=== PATIENT | female | born 1970 | race African-American/Black ===

== ENCOUNTER 2023-04-20 12:24 | Emergency (ER) | payer OTHER ==
[~2023-04-20] VITALS: Ht 167.6 cm; Wt 100.0 kg
[~2023-04-20 12:24] MED LIST: ASPI-1444 PO; CETI-450 PO; CHOL200018 PO; CITA-144 PO; CYCL5TAB PO; FOLI-130 PO; HYDR200T38 PO; HYDR25TA2 PO; LORA-999 PO; MOME17N NASAL; POLY17PO47 PO
[2023-04-20 12:26] VITALS: TEMP 98.4
[2023-04-20] MEDS ORDERED: LIDOCAINE 5% TRANSDERMAL PATCH TD ONE (13:15)
[2023-04-20] MEDS ORDERED: ACETAMINOPHEN 500 MG TABLET PO ONE (13:15)
[2023-04-20] MEDS ORDERED: BACLOFEN 10 MG TABLET PO ONE (13:15)
[2023-04-20] MEDS ORDERED: LIDO700A15 TP (14:26)
[2023-04-20 14:30] VITALS: BP 164/94; PULSE 98; RESP 16
[2023-04-20] MEDS ORDERED: DICL100G60 TP (14:30)
[2023-04-20] MEDS ORDERED: BACL10TA PO (14:31)
== END 2023-04-20 14:48 | disposition home or self-care (01) ==
LOC: EMS 12:26
DX: M25.551 Pain in right hip (principal); F41.9 Anxiety disorder, unspecified; I10 Essential (primary) hypertension; E03.9 Hypothyroidism, unspecified; F17.210 Nicotine dependence, cigarettes, uncomplicated; Z98.51 Tubal ligation status; Z90.89 Acquired absence of other organs; Z98.890 Other specified postprocedural states
CPT/HCPCS: 73502; 99284; 99285

== ENCOUNTER 2023-05-25 15:06 | Inpatient (IN) | payer OTHER ==
[~2023-05-25] VITALS: Ht 172.7 cm; Wt 101.2 kg
[~2023-05-25 15:06] MED LIST changes: -ASPI-1444 PO; +BACL10TA PO; -CETI-450 PO; -CHOL200018 PO; -CITA-144 PO; -CYCL5TAB PO; +DICL100G60 TP; -FOLI-130 PO; -HYDR200T38 PO; -HYDR25TA2 PO; +LIDO700A15 TP; -LORA-999 PO; -MOME17N NASAL; -POLY17PO47 PO
[2023-05-25] MEDS ORDERED: LOSA-381 PO (15:29)
[2023-05-25] MEDS ORDERED: HydrALAZINE HCL 20 MG/ML VIAL IVP ONE (15:30)
[2023-05-25 15:47] LABS: BASOPHILS % (AUTO) 0.2 % (0.0-2.0); EOSINOPHILS % (AUTO) 1.2 % (1.0-6.0); HEMATOCRIT 34.8 % (36-46); HEMOGLOBIN 11.8 g/dL (12.0-16.0); LYMPHOCYTES # (AUTO) 2.2 K/uL (1.0-4.8); LYMPHOCYTES % (AUTO) 32.6 % (22.0-44.0); MEAN CORPUSCULAR HEMOGLOBIN 28.8 pg (26.0-34.0); MEAN CORPUSCULAR HGB CONC 33.9 G/dL (31.0-37.0); MEAN CORPUSCULAR VOLUME 85 fL (80-100); MONOCYTES # (AUTO) 0.8 K/uL (0.1-1.0); MONOCYTES % (AUTO) 12.2 % (2.0-9.0); NEUTROPHILS # (AUTO) 3.6 K/uL (1.8-7.7); NEUTROPHILS % (AUTO) 53.8 % (40.0-70.0); PLATELET COUNT (AUTO) 292 K/uL (150-450); RED BLOOD CELL COUNT(AUTO) 4.08 MIL/uL (4.00-5.20); RED CELL DISTRIBUTION WIDTH 13.7 % (11.5-14.5); WHITE BLOOD COUNT (AUTO) 6.7 K/uL (4.5-11.0)
[2023-05-25 16:01] LABS: ANION GAP 6 mmol/L (8-16); CALCIUM, TOTAL 9.1 mg/dL (8.8-10.5); CARBON DIOXIDE 29 mmol/L (22-29); CHLORIDE 103 mmol/L (98-107); CREATININE 0.89 mg/dL (0.60-1.30); GLOMERULAR FILTR. RATE CALC > 60 mL/min (>60); GLUCOSE,RANDOM 96 mg/dL (70-110); POTASSIUM 3.7 mmol/L (3.5-5.1); SODIUM SERUM 138 mmol/L (136-145); UREA NITROGEN, BLOOD 14 mg/dL (7-18)
[2023-05-25 16:07] LABS: ALANINE AMINOTRANSFERASE 12 U/L (12-78); ALBUMIN 3.2 g/dL (3.4-5.0); ALKALINE PHOSPHATASE 107 U/L (46-116); ASPARTATE AMINOTRANSFERASE 24 U/L (15-37); BILIRUBIN,TOTAL 0.3 mg/dL (0.1-1.0); TOTAL PROTEIN, SERUM 7.9 g/dL (6.4-8.2)
[2023-05-25 16:09] LABS: TROPONIN I-HIGH SENSITIVITY 26 ng/L (<51)
[2023-05-25 16:10] LABS: B-TYPE NATRIURETIC PEPTIDE 61 pg/mL (0-100)
[2023-05-25] MEDS ORDERED: LABETALOL HCL 5 MG/ML 20 ML VIAL IVP ONE (17:30)
[2023-05-25] MEDS ORDERED: SODIUM CHLORIDE 0.9% 100 ML ONE (17:31)
[2023-05-25] MEDS ORDERED: IOHEXOL 350 MG/ML 100 ML VIAL ONE (17:32)
[2023-05-25] MEDS ORDERED: MAGNESIUM HYDROXIDE SUSPENSION 30 ML UDCUP PO PRN (19:00)
[2023-05-25] MEDS ORDERED: MORPHINE SULFATE 2 MG/ML SYRINGE IVP PRN (19:00)
[2023-05-25] MEDS ORDERED: BISACODYL 10 MG RECTAL RECTAL SUPPOSITORY PR PRN (19:00)
[2023-05-25] MEDS ORDERED: ZOLPIDEM TARTRATE 5 MG TABLET PO PRN (19:00)
[2023-05-25 20:09] LABS: COVID AG,FIA SOURCE NASAL SWAB
[2023-05-25] MEDS ORDERED: LABETALOL HCL 200 MG in DEXTROSE 5%-WATER 160 ML IV PRN (20:15)
[2023-05-25] MEDS: ACETAMINOPHEN 325 MG TABLET PO PRN (20:19)
[2023-05-25] MEDS: DOCUSATE SODIUM 100 MG CAPSULE PO SCH (20:19)
[2023-05-25] MEDS: ONDANSETRON HCL 4 MG/2 ML VIAL IVP PRN (20:20)
[2023-05-25 20:26] LABS: SARS-COV2 (COVID) ANTIGEN,FIA Negative (Negative)
[2023-05-25 21:00] VITALS: BP 191/96; PULSE 85; RESP 16; TEMP 98.4
[2023-05-25] MEDS: HYDROCODONE/ACETAMINOPHEN 5-325 MG TABLET PO PRN (21:26)
[2023-05-26] VITALS (7 sets, daily range): BP systolic 119–170; BP diastolic 57–90; PULSE 62–74; RESP 11–20; TEMP 97.4–98.7
[2023-05-26] MEDS: HEPARIN SODIUM,PORCINE 5,000 UNITS/ML VIAL SQ SCH ×4 (00:24→23:24)
[2023-05-26] MEDS: HYDROCODONE/ACETAMINOPHEN 5-325 MG TABLET PO PRN (04:51)
[2023-05-26 05:18] LABS: BASOPHILS % (AUTO) 0.3 % (0.0-2.0); EOSINOPHILS % (AUTO) 1.6 % (1.0-6.0); HEMATOCRIT 34.9 % (36-46); LYMPHOCYTES # (AUTO) 2.8 K/uL (1.0-4.8); LYMPHOCYTES % (AUTO) 41.4 % (22.0-44.0); MEAN CORPUSCULAR HEMOGLOBIN 29.3 pg (26.0-34.0); MEAN CORPUSCULAR HGB CONC 34.5 G/dL (31.0-37.0); MEAN CORPUSCULAR VOLUME 85 fL (80-100); MONOCYTES # (AUTO) 0.9 K/uL (0.1-1.0); MONOCYTES % (AUTO) 13.6 % (2.0-9.0); NEUTROPHILS # (AUTO) 2.9 K/uL (1.8-7.7); NEUTROPHILS % (AUTO) 43.1 % (40.0-70.0); PLATELET COUNT (AUTO) 301 K/uL (150-450); RED CELL DISTRIBUTION WIDTH 13.8 % (11.5-14.5); WHITE BLOOD COUNT (AUTO) 6.8 K/uL (4.5-11.0)
[2023-05-26 05:39] LABS: ANION GAP 5 mmol/L (8-16); CALCIUM, TOTAL 9.2 mg/dL (8.8-10.5); CARBON DIOXIDE 30 mmol/L (22-29); CHLORIDE 104 mmol/L (98-107); CHOL/HDL RATIO 3.8 (3.9-5.7); CHOLESTEROL 150 mg/dL (131-200); CREATININE 0.94 mg/dL (0.60-1.30); GLOMERULAR FILTR. RATE CALC > 60 mL/min (>60); GLUCOSE,RANDOM 103 mg/dL (70-110); HDL CHOLESTEROL 39 mg/dL (40-60); LDL CHOL (CALC.) 89 mg/dL (0-130); POTASSIUM 4.3 mmol/L (3.5-5.1); SODIUM SERUM 139 mmol/L (136-145); THYROID STIMULATING HORMONE 2.02 uIU/mL (0.36-3.74); TRIGLYCERIDES 112 mg/dL (15-150); UREA NITROGEN, BLOOD 13 mg/dL (7-18)
[2023-05-26] MEDS: PANTOPRAZOLE SODIUM 40 MG DR TABLET PO SCH (08:00)
[2023-05-26] MEDS: DOCUSATE SODIUM 100 MG CAPSULE PO SCH ×2 (08:00→20:34)
[2023-05-26] MEDS: AmLODIPine BESYLATE 10 MG TABLET PO SCH (08:00)
[2023-05-26] MEDS: ONDANSETRON HCL 4 MG/2 ML VIAL IVP PRN (08:58)
[2023-05-26] MEDS: ACETAMINOPHEN 325 MG TABLET PO PRN (14:45)
[2023-05-26] MEDS ORDERED: CloNIDine HCL 0.1 MG TABLET PO PRN (20:15)
[2023-05-27 04:27] VITALS: BP 150/78; PULSE 66; RESP 17; TEMP 97.7
[2023-05-27 07:10] LABS: BASOPHILS % (AUTO) 0.4 % (0.0-2.0); EOSINOPHILS % (AUTO) 1.6 % (1.0-6.0); HEMATOCRIT 33.7 % (36-46); HEMOGLOBIN 11.5 g/dL (12.0-16.0); LYMPHOCYTES # (AUTO) 2.2 K/uL (1.0-4.8); LYMPHOCYTES % (AUTO) 32.3 % (22.0-44.0); MEAN CORPUSCULAR HEMOGLOBIN 29.4 pg (26.0-34.0); MEAN CORPUSCULAR VOLUME 86 fL (80-100); MONOCYTES # (AUTO) 0.8 K/uL (0.1-1.0); MONOCYTES % (AUTO) 12.6 % (2.0-9.0); NEUTROPHILS # (AUTO) 3.6 K/uL (1.8-7.7); NEUTROPHILS % (AUTO) 53.1 % (40.0-70.0); PLATELET COUNT (AUTO) 288 K/uL (150-450); RED CELL DISTRIBUTION WIDTH 13.8 % (11.5-14.5); WHITE BLOOD COUNT (AUTO) 6.7 K/uL (4.5-11.0)
[2023-05-27 08:07] LABS: ANION GAP 8 mmol/L (8-16); CALCIUM, TOTAL 8.9 mg/dL (8.8-10.5); CARBON DIOXIDE 26 mmol/L (22-29); CHLORIDE 105 mmol/L (98-107); CREATININE 1.01 mg/dL (0.60-1.30); GLOMERULAR FILTR. RATE CALC > 60 mL/min (>60); GLUCOSE,RANDOM 116 mg/dL (70-110); POTASSIUM 3.9 mmol/L (3.5-5.1); SODIUM SERUM 139 mmol/L (136-145); UREA NITROGEN, BLOOD 15 mg/dL (7-18)
[2023-05-27 08:23] VITALS: BP 151/76; PULSE 66; RESP 20; TEMP 97.9
[2023-05-27] MEDS: DOCUSATE SODIUM 100 MG CAPSULE PO SCH (09:20)
[2023-05-27] MEDS: HEPARIN SODIUM,PORCINE 5,000 UNITS/ML VIAL SQ SCH (09:20)
[2023-05-27] MEDS: PANTOPRAZOLE SODIUM 40 MG DR TABLET PO SCH (09:21)
[2023-05-27] MEDS: AmLODIPine BESYLATE 10 MG TABLET PO SCH (09:21)
[2023-05-27] MEDS ORDERED: LISINOPRIL 5 MG TABLET PO SCH (10:45)
[2023-05-27] MEDS ORDERED: LOSARTAN POTASSIUM 25 MG TABLET PO SCH (11:00)
[2023-05-27 11:19] VITALS: BP 154/79; RESP 18; TEMP 98
[2023-05-27 12:57] VITALS: BP 140/74; PULSE 72; RESP 16; TEMP 98.1
[2023-05-27] MEDS ORDERED: LOSA-381 PO (14:06)
[2023-05-27] MEDS ORDERED: AMLO10TA55 PO (14:07)
[2023-05-27] MEDS ORDERED: DOCU100C33 PO (14:08)
[2023-05-27] MEDS ORDERED: LISI-663 PO (14:09)
[2023-05-27] MEDS ORDERED: ACET-3685 PO (14:11)
[2023-05-27] MEDS ORDERED: BISA-72 PO (14:12)
== END 2023-05-27 15:25 | disposition home or self-care (01) | DRG 305 ==
LOC: EMS 15:08 → ICU 18:39 → 5S 05-26 14:15
PROVIDERS: ADMIT Internal Medicine; ATTEND Internal Medicine
DX: I16.0 Hypertensive urgency (principal); I20.0 Unstable angina; D64.9 Anemia, unspecified; E03.9 Hypothyroidism, unspecified; F41.9 Anxiety disorder, unspecified; Z20.822 Contact with and (suspected) exposure to COVID-19; M32.9 Systemic lupus erythematosus, unspecified; I10 Essential (primary) hypertension; E66.9 Obesity, unspecified; Z68.33 Body mass index [BMI] 33.0-33.9, adult; Z86.73 Personal history of transient ischemic attack (TIA), and cerebral infarction without residual deficits; Z91.148 Patient's other noncompliance with medication regimen for other reason; Z63.4 Disappearance and death of family member; Z91.048 Other nonmedicinal substance allergy status; Z98.51 Tubal ligation status
CPT/HCPCS: 71045; 71275; 80048; 80053; 80061; 83880; 84443; 84484; 85025; 87081; 93005; 93306; 99291; G0378; J0360; J1644; J2270; J2405; J3490; J7050; J7060; Q9967; 36415-L1; 36415-TC

== ENCOUNTER 2023-06-08 10:10 | Emergency (ER) | payer OTHER ==
[~2023-06-08] VITALS: Ht 167.6 cm; Wt 81.8 kg
[~2023-06-08 10:10] MED LIST changes: +AMLO10TA55 PO; -BACL10TA PO; -DICL100G60 TP; -LIDO700A15 TP; +LOSA-381 PO
[2023-06-08 11:07] LABS: BASOPHILS % (AUTO) 0.4 % (0.0-2.0); EOSINOPHILS % (AUTO) 0.5 % (1.0-6.0); HEMATOCRIT 36.4 % (36-46); HEMOGLOBIN 12.7 g/dL (12.0-16.0); LYMPHOCYTES # (AUTO) 1.7 K/uL (1.0-4.8); LYMPHOCYTES % (AUTO) 25.1 % (22.0-44.0); MEAN CORPUSCULAR HEMOGLOBIN 29.3 pg (26.0-34.0); MEAN CORPUSCULAR HGB CONC 34.7 G/dL (31.0-37.0); MEAN CORPUSCULAR VOLUME 84 fL (80-100); MONOCYTES # (AUTO) 0.6 K/uL (0.1-1.0); MONOCYTES % (AUTO) 8.9 % (2.0-9.0); NEUTROPHILS # (AUTO) 4.3 K/uL (1.8-7.7); NEUTROPHILS % (AUTO) 65.1 % (40.0-70.0); PLATELET COUNT (AUTO) 311 K/uL (150-450); RED BLOOD CELL COUNT(AUTO) 4.32 MIL/uL (4.00-5.20); RED CELL DISTRIBUTION WIDTH 13.7 % (11.5-14.5); WHITE BLOOD COUNT (AUTO) 6.7 K/uL (4.5-11.0)
[2023-06-08 11:20] LABS: ANION GAP 7 mmol/L (8-16); CALCIUM, TOTAL 9.4 mg/dL (8.8-10.5); CARBON DIOXIDE 29 mmol/L (22-29); CHLORIDE 101 mmol/L (98-107); CREATININE 0.92 mg/dL (0.60-1.30); GLOMERULAR FILTR. RATE CALC > 60 mL/min (>60); GLUCOSE,RANDOM 103 mg/dL (70-110); POTASSIUM 4.1 mmol/L (3.5-5.1); SODIUM SERUM 137 mmol/L (136-145); UREA NITROGEN, BLOOD 17 mg/dL (7-18)
[2023-06-08 11:26] LABS: ALANINE AMINOTRANSFERASE 21 U/L (12-78); ALBUMIN 3.4 g/dL (3.4-5.0); ALKALINE PHOSPHATASE 112 U/L (46-116); ASPARTATE AMINOTRANSFERASE 22 U/L (15-37); BILIRUBIN,TOTAL 0.3 mg/dL (0.1-1.0)
[2023-06-08 11:28] LABS: TROPONIN I-HIGH SENSITIVITY 30 ng/L (<51)
[2023-06-08 12:16] VITALS: TEMP 97.9
[2023-06-08] MEDS ORDERED: ONDANSETRON HCL 4 MG TABLET PO ONE (14:15)
[2023-06-08] MEDS ORDERED: ACETAMINOPHEN 500 MG TABLET PO ONE (14:15)
[2023-06-08] MEDS ORDERED: MECLIZINE HCL 25 MG TABLET PO ONE (14:15)
[2023-06-08] MEDS ORDERED: ACET-66 PO (14:16)
[2023-06-08] MEDS ORDERED: MECL-134 PO (14:16)
[2023-06-08] MEDS ORDERED: ONDA-104 PO (14:16)
[2023-06-08 14:27] VITALS: BP 188/100; PULSE 74; RESP 18
== END 2023-06-08 14:37 | disposition home or self-care (01) ==
LOC: EMS 10:34
DX: R07.89 Other chest pain (principal); R42 Dizziness and giddiness; F41.9 Anxiety disorder, unspecified; I10 Essential (primary) hypertension; E03.9 Hypothyroidism, unspecified; Z98.51 Tubal ligation status; Z90.89 Acquired absence of other organs; Z98.890 Other specified postprocedural states
CPT/HCPCS: 99285; 71045; 80053; 83690; 84484; 85025; 36415; 93005; Q0162

== ENCOUNTER 2024-05-01 15:22 | Emergency (ER) | payer OTHER ==
[~2024-05-01] VITALS: Ht 172.7 cm; Wt 92.3 kg
[~2024-05-01 15:22] MED LIST changes: +ACET-66 PO; +MECL-134 PO; +ONDA-104 PO
[2024-05-01 15:33] VITALS: BP 174/90; PULSE 78; RESP 18; TEMP 98.8; O2SAT 99
[2024-05-01] MEDS: IBUPROFEN 600 MG TABLET PO ONE (18:16)
[2024-05-01] MEDS: ACETAMINOPHEN 500 MG TABLET PO ONE (18:16)
[2024-05-01] MEDS ORDERED: ACET-2080 PO (21:08)
[2024-05-01] MEDS ORDERED: IBUP-1554 PO (21:08)
== END 2024-05-01 21:22 | disposition home or self-care (01) ==
LOC: EMS 15:29
DX: S13.9XXA Sprain of joints and ligaments of unspecified parts of neck, initial encounter (principal); S39.012A Strain of muscle, fascia and tendon of lower back, initial encounter; F41.9 Anxiety disorder, unspecified; I10 Essential (primary) hypertension; E03.9 Hypothyroidism, unspecified; Z90.89 Acquired absence of other organs; Z98.51 Tubal ligation status; Z98.890 Other specified postprocedural states; Z87.39 Personal history of other diseases of the musculoskeletal system and connective tissue; V49.88XA Car occupant (driver) (passenger) injured in other specified transport accidents, initial encounter; Y93.89 Activity, other specified; Y92.89 Other specified places as the place of occurrence of the external cause; Y99.8 Other external cause status
CPT/HCPCS: 72040; 72070; 72100; 99284; Z7502; Z7610